=== PATIENT | female | born 2000 | race Caucasian/White ===

== ENCOUNTER 2018-06-30 12:12 | Emergency (ER) | payer BC ==
[2018-06-30 12:54] VITALS: BP 110/63
--- NOTE | 2018-06-30 13:29 | UC ---
Throat Pain/Nasal Andre HPI - HPI Summary HPI Summary: 18-year-old female presents with a ten-day history of sore throat. Initially associated with some mild nasal congestion and drainage however the symptoms have resolved. She states over about the past 4-5 days been noticing increased swelling of her lymph nodes and has developed some bilateral ear pain as well. Today she noted some left upper quadrant pain. Denies fever, chills, dysphagia , chest pain, shortness of breath, nausea or vomiting. Last menstrual period was 06/01/2018. She is sexually active however she states that she is on oral control and using condoms consistently. - History of Current Complaint Chief Complaint: UCRespiratory Stated Complaint: SORE THROAT Time Seen by Provider: 06/30/18 13:17 Hx Obtained From: Patient Hx Last Menstrual Period: 06/01/18 ?: No Onset/Duration: Gradual Onset, Lasting Days - 10 Severity: Mild Pain Intensity: 4 Cough: None Associated Signs & Symptoms: Positive: Nasal Discharge. Negative: Dysphagia, Hoarseness, Sinus Discomfort, Fever, Vomiting, Rash - Allergies/Home Medications Allergies/Adverse Reactions: Allergies Allergy/AdvReac Type Severity Reaction Status Date / Time cefprozil [From Cefzil] Allergy Hives Verified 06/30/18 12:55 Home Medications: Home Medications Otc 24 Hr Allergy Med 1 dose PO DAILY PRN 06/30/18 [History Confirmed 06/30/18] Saline Nasal Rinse 1 dose BOTH NARES BID PRN 06/30/18 [History Confirmed ] PMH/Surg Hx/FS Hx/Imm Hx Previously Healthy: Yes - denies significant past medical history - Surgical History Surgical History: None - Family History Known Family History: Positive: Cardiac Disease - father stroke at age 50, Hypertension - father - Social History Occupation: Student Lives: Dormitory/Roommates Alcohol Use: None Substance Use Type: None Smoking Status (MU): Never Smoked Tobacco - Immunization History Most Recent Influenza Vaccination: Not the 2016/2016 Season Review of Systems Constitutional: Negative Skin: Negative Eyes: Negative ENT: Sore Throat, Ear Ache, Nasal Discharge Respiratory: Negative Cardiovascular: Negative Gastrointestinal: Abdominal Pain Genitourinary: Negative Is Patient Immunocompromised?: No All Other Systems Reviewed And Are Negative: Yes Physical Exam Triage Information Reviewed: Yes Appearance: Well-Appearing, No Pain Distress, Well-Nourished Vital Signs: Initial Vital Signs Temp 98.5 F 06/30/18 12:43 Pulse 84 06/30/18 12:43 Resp 20 06/30/18 12:43 BP 110/63 06/30/18 12:43 Pulse Ox 99 06/30/18 12:43 Vital Signs Reviewed: Yes Eyes: Positive: Conjunctiva Clear. Negative: Discharge ENT: Positive: Pharyngeal erythema - Mild, TMs normal, Tonsillar swelling - 2+, Tonsillar exudate, Uvula midline. Negative: Nasal congestion, Nasal drainage, Trismus, Muffled voice, Hoarse voice, Sinus tenderness Neck: Positive: Supple, Enlarged Nodes @ - Anterior cervical with tenderness Respiratory: Positive: Lungs clear, Normal breath sounds, No respiratory distress Cardiovascular: Positive: RRR, No Murmur Abdomen Description: Positive: No Organomegaly, Soft, Other: - Mild left upper quadrant. Negative: Distended, Guarding Bowel Sounds: Positive: Present Neurological: Positive: Alert Skin Exam: Normal Diagnostics - Laboratory Diagnostic Studies Completed/Ordered: rapid strep positive Throat Pain/Nasal Course/Dx - Course Course Of Treatment: 18 year old female with 10 day history of sore throat. Exam revealed pharyngeal erythema with tonsillar swelling and exudate. Rapid strep positive. Will treat with 10 day course PenVK as well as symptomatic treatment. - Differential Dx/Diagnosis Differential Diagnosis/HQI/PQRI: Otitis Media, Pharyngitis, Tonsillitis, URI Provider Diagnoses: Strep pharyngitits Discharge - Sign-Out/Discharge Documenting (check all that apply): Patient Departure All imaging exams completed and their final reports reviewed: No Studies - Discharge Plan Condition: Stable Disposition: HOME Prescriptions: Penicillin VK 500 MG TAB(NF) [Penicillin VK 500 mg Tab] 500 mg PO BID #20 tab Patient Education Materials: Strep Throat (ED) Forms: *School Release Referrals: No Primary Care Phys,NOPCP [Primary Care Provider] - Additional Instructions: The rapid strep test in the clinic today was positive for strep throat. Start penicillin 1 tab twice a day for 10 days to treat your infection. Be aware that there is a small chance of cross reaction since you have an allergy to Cefzil. Stopped this medication immediately if you develop any rash and/or have any swelling of the lips, tongue, throat, or difficulty breathing and seek immediate medical attention. Drink plenty of fluids. He saltwater gargles several times throughout the day. Take acetaminophen (Tylenol) or ibuprofen (Advil, Motrin) according directions as needed for pain. You may also use Chloraseptic spray or Cepacol lozenges for some temporary pain relief. Follow-up here or with your primary care provider if no improvement in symptoms. - Billing Disposition and Condition Condition: STABLE Disposition: Home
== END 2018-06-30 14:07 | disposition home or self-care (01) ==
LOC: UCCORT 12:12
DX: J02.0 Streptococcal pharyngitis (principal)
CPT/HCPCS: 87651; 99212; G0463

== ENCOUNTER 2018-12-16 17:13 | Emergency (ER) | payer BC ==
[2018-12-16 17:42] VITALS: BP 124/73
--- NOTE | 2018-12-16 18:16 | UC ---
Throat Pain/Nasal Andre HPI - HPI Summary HPI Summary: 18-year-old female with cold symptoms over the past 2 days. - History of Current Complaint Chief Complaint: UCRespiratory Stated Complaint: SINUS,CONGESTION Time Seen by Provider: 12/16/18 17:38 Hx Obtained From: Patient Hx Last Menstrual Period: 12/06/18 ?: No Onset/Duration: Gradual Onset Severity: Mild Pain Intensity: 0 Cough: None Associated Signs & Symptoms: Positive: Negative - Epiglottits Risk Factors Epiglottis Risk Factors: Negative - Allergies/Home Medications Allergies/Adverse Reactions: Allergies Allergy/AdvReac Type Severity Reaction Status Date / Time cefprozil [From Cefzil] Allergy Hives Verified 12/16/18 17:33 day quil, nyquil AdvReac Pt states Uncoded 12/16/18 17:35 she feels "foggy" PMH/Surg Hx/FS Hx/Imm Hx Previously Healthy: Yes - Surgical History Surgical History: Yes Surgery Procedure, Year, and Place: wisdom teeth - Family History Known Family History: Positive: Cardiac Disease - father stroke at age 50, Hypertension - father - Social History Occupation: Student Lives: Dormitory/Roommates Alcohol Use: None Substance Use Type: None Smoking Status (MU): Never Smoked Tobacco - Immunization History Most Recent Influenza Vaccination: Not the 2015/2016 Season Review of Systems All Other Systems Reviewed And Are Negative: Yes Constitutional: Positive: Negative Skin: Positive: Negative Eyes: Positive: Negative ENT: Positive: Nasal Discharge, Sinus Congestion Respiratory: Positive: Negative Cardiovascular: Positive: Negative Gastrointestinal: Positive: Negative Genitourinary: Positive: Negative Motor: Positive: Negative Neurovascular: Positive: Negative Musculoskeletal: Positive: Negative Neurological: Positive: Negative Psychological: Positive: Negative Is Patient Immunocompromised?: No Physical Exam Triage Information Reviewed: Yes Appearance: Well-Appearing, No Pain Distress, Well-Nourished Vital Signs: Initial Vital Signs Temp 99.1 F 12/16/18 17:35 Pulse 87 12/16/18 17:35 Resp 20 12/16/18 17:35 BP 124/73 12/16/18 17:35 Pulse Ox 99 12/16/18 17:35 Vital Signs Reviewed: Yes Eye Exam: Normal ENT: Positive: Hearing grossly normal, Pharynx normal, Nasal congestion, Nasal drainage - Clear Nasal coryza, TMs normal, Sinus tenderness, Uvula midline. Negative: Tonsillar swelling, Tonsillar exudate, Trismus, Muffled voice, Hoarse voice Neck exam: Normal Respiratory Exam: Normal Cardiovascular Exam: Normal Abdominal Exam: Normal Bowel Sounds: Positive: Present Musculoskeletal Exam: Normal Neurological Exam: Normal Psychological Exam: Normal Skin Exam: Normal Throat Pain/Nasal Course/Dx - Course Course Of Treatment: Patient has been comfortable here. She is to use over-the- counter cold medicines as directed. - Differential Dx/Diagnosis Differential Diagnosis/HQI/PQRI: URI Provider Diagnosis: URI (upper respiratory infection) Discharge - Sign-Out/Discharge Documenting (check all that apply): Patient Departure All imaging exams completed and their final reports reviewed: No Studies - Discharge Plan Condition: Good Disposition: HOME Patient Education Materials: Upper Respiratory Infection (DC) Referrals: No Primary Care Phys,NOPCP [Primary Care Provider] - DARIAN LINDO [[email or web address], APPLICATION, OTHER] - Additional Instructions: Increase fluids, [id number] cold medicine directed. Follow up at the [facility] in 2 or 3 days if no improvement. - Billing Disposition and Condition Condition: GOOD Disposition: Home
== END 2018-12-16 18:18 | disposition home or self-care (01) ==
LOC: UCCORT 17:13
DX: J06.9 Acute upper respiratory infection, unspecified (principal); Z88.1 Allergy status to other antibiotic agents; Z88.8 Allergy status to other drugs, medicaments and biological substances
CPT/HCPCS: 99211; G0463

== ENCOUNTER 2019-01-02 15:00 | Emergency (ER) | payer BC ==
[2019-01-02 15:09] VITALS: BP 113/70
--- NOTE | 2019-01-02 15:57 | UC ---
Epistaxis Nasal HPI - HPI Summary HPI Summary: Pt presents with c/o frequent nose bleeds that have become more frequent over the last 3 days. - History of Current Complaint Chief Complaint: UCGeneralIllness Stated Complaint: NOSE BLEED/NAIR Hx Obtained From: Patient Hx Last Menstrual Period: 12/06/18 ?: No Onset/Duration: Sudden Onset, Lasting Days, Still Present Timing: Minutes Severity Initially: Moderate Severity Currently: None Pain Intensity: 4 Aggravating Factor(s): Other - sinusitis two weeks prior to onset of nosebleeds Alleviating Factor(s): Pressure Associated Signs And Symptoms: Positive: Negative - Allergies/Home Medications Allergies/Adverse Reactions: Allergies Allergy/AdvReac Type Severity Reaction Status Date / Time cefprozil [From Cefzil] Allergy Hives Verified 01/02/19 15:03 day quil, nyquil AdvReac Pt states Uncoded 01/02/19 15:03 she feels "foggy" Home Medications: Home Medications NK [No Home Medications Reported] 01/02/19 [History Confirmed 01/02/19] PMH/Surg Hx/FS Hx/Imm Hx Previously Healthy: Yes - Surgical History Surgical History: Yes Surgery Procedure, Year, and Place: wisdom teeth - Family History Known Family History: Positive: Cardiac Disease - father stroke at age 50, Hypertension - father - Social History Occupation: Student Lives: Dormitory/Roommates Alcohol Use: Occasionally Substance Use Type: None Smoking Status (MU): Never Smoked Tobacco Have You Smoked in the Last Year: No - Immunization History Most Recent Influenza Vaccination: Not the 2015/2016 Season Vaccination Up to Date: Yes Review of Systems All Other Systems Reviewed And Are Negative: Yes Constitutional: Positive: Negative Skin: Positive: Negative Eyes: Positive: Negative ENT: Positive: Other - nosebleeds Respiratory: Positive: Negative Cardiovascular: Positive: Negative Gastrointestinal: Positive: Negative Genitourinary: Positive: Negative Motor: Positive: Negative Neurovascular: Positive: Negative Musculoskeletal: Positive: Negative Neurological: Positive: Negative Psychological: Positive: Negative Is Patient Immunocompromised?: No Physical Exam Triage Information Reviewed: Yes Appearance: Well-Appearing Vital Signs: Initial Vital Signs Temp 98.2 F 01/02/19 15:03 Pulse 85 01/02/19 15:03 Resp 16 01/02/19 15:03 BP 113/70 01/02/19 15:03 Pulse Ox 98 01/02/19 15:03 Vital Signs Reviewed: Yes Eye Exam: Normal ENT: Positive: Other - no hematoma appreciated in either nostril, nasal passages patent, Dental Exam: Normal Neck exam: Normal Respiratory Exam: Normal Respiratory: Positive: No respiratory distress Musculoskeletal Exam: Normal Neurological Exam: Normal Psychological Exam: Normal Skin Exam: Normal Epistaxis Nasal Course/Dx - Differential Dx/Diagnosis Differential Diagnosis/HQI/PQRI: Epistaxis Provider Diagnosis: Epistaxis not due to trauma Discharge - Sign-Out/Discharge Documenting (check all that apply): Patient Departure All imaging exams completed and their final reports reviewed: No Studies - Discharge Plan Condition: Stable Disposition: HOME Patient Education Materials: Nosebleed (ED) Referrals: Ameya Davis MD [Medical Doctor] - As Soon As Possible No Primary Care Phys,NOPCP [Primary Care Provider] - Additional Instructions: Please use an antibiotic ointment inside your nostrils nightly with a clean Qtip. - Billing Disposition and Condition Condition: STABLE Disposition: Home - Attestation Statements Provider Attestation: I was available for consult. This patient was seen by the [facility]. The patient was not presented to, seen by, or examined by me. -Jeanna
== END 2019-01-02 16:10 | disposition home or self-care (01) ==
LOC: UCCORT 15:00
DX: R04.0 Epistaxis (principal); Z88.1 Allergy status to other antibiotic agents
CPT/HCPCS: 99211; G0463

== ENCOUNTER 2019-08-09 13:26 | Emergency (ER) | payer BC ==
[2019-08-09 13:49] VITALS: BP 113/68
[2019-08-09] MEDS ORDERED: Ibuprofen TAB* 200 MG PO ONE (14:09)
--- NOTE | 2019-08-09 14:13 | UC ---
Upper Extremity HPI - HPI Summary HPI Summary: 19 year old female, no prior injuries, no PMH, present with right hand pain, wrist pain. Patient fell on friday after tripping, landed on hand, immediate pain, swelling, some bruising. pain continues, difficulty moving fingers/ wrist due to pain. - History of Current Complaint Chief Complaint: UCUpperExtremity Stated Complaint: RIGHT HAND COMPLAINT Time Seen by Provider: 08/09/19 13:49 Hx Obtained From: Patient Hx Last Menstrual Period: 07/12/19 ?: No Onset/Duration: Sudden Onset, Lasting Days Severity Initially: Moderate Severity Currently: Moderate Pain Intensity: 8 Pain Scale Used: 0-10 Numeric Location Of Pain: Is Discrete @ - right wrist, hand Aggravating Factor(s): Movement Alleviating Factor(s): Rest Associated Signs And Symptoms: Positive: Swelling, Bruising Related History: Dominant Hand Left - Allergies/Home Medications Allergies/Adverse Reactions: Allergies Allergy/AdvReac Type Severity Reaction Status Date / Time cefprozil [From Cefzil] Allergy Hives Verified 08/09/19 13:46 day quil, nyquil AdvReac Pt states Uncoded 08/09/19 13:46 she feels "foggy" Home Medications: Home Medications Ibuprofen TAB* [Motrin TAB* 600 MG] 600 mg PO Q6H PRN 08/09/19 [History Confirmed 08/09/19] PMH/Surg Hx/FS Hx/Imm Hx Previously Healthy: Yes - Surgical History Surgical History: Yes Surgery Procedure, Year, and Place: wisdom teeth - Family History Known Family History: Positive: Cardiac Disease - father stroke at age 50, Hypertension - father, Non-Contributory - Social History Alcohol Use: Occasionally Substance Use Type: None Smoking Status (MU): Never Smoked Tobacco Have You Smoked in the Last Year: No - Immunization History Most Recent Influenza Vaccination: Not the 2016/2016 Season Vaccination Up to Date: Yes Review of Systems All Other Systems Reviewed And Are Negative: Yes Constitutional: Positive: Negative Motor: Positive: Decreased ROM Musculoskeletal: Positive: Arthralgia, Decreased ROM, Edema, Myalgia Is Patient Immunocompromised?: No Physical Exam Triage Information Reviewed: Yes Appearance: Well-Appearing, No Pain Distress, Well-Nourished Vital Signs: Initial Vital Signs Temp 98.9 F 08/09/19 13:44 Pulse 72 08/09/19 13:44 Resp 14 08/09/19 13:44 BP 113/68 08/09/19 13:44 Pulse Ox 99 08/09/19 13:44 Vital Signs Reviewed: Yes Eyes: Positive: Conjunctiva Clear ENT: Positive: Hearing grossly normal Skin: Positive: Other - mild ecchymosis noted at MCP 4th, 5th right hand, PIP 5th, 4th, IP 1st. decreased ROM at Upper Extremity Course/Dx - Course Course Of Treatment: Hotel Room Attendant: Lloyd Spangler Daniel, ([id number]) Laborer Sawmill: KERON ( NUANCE) Report Date: 08/09/2019 13:53:00 Report Status: Final ====== Start of Report Content Patient Name: CYNDI COLE Medical Record#: [id number] Ordering Physician: Caren GARCIA Acct.#: [id number] : Age: 19 Sex: F Location: [facility] Exam Date: 08/09/19 1353 ADM Status: REG ER Order Information: HAND - RIGHT MINIMUM 3 VIEWS Accession Number: [id number] CPT: 98985 HISTORY: fall, TTP/ decreased ROM 5, 4th PIP, metacarp . COMPARISONS: None relevant available at the time of dictation. VIEWS: 7, Frontal, lateral, and oblique views of the right hand and wrist FINDINGS: BONE DENSITY: Normal. BONES: There is no displaced fracture. JOINTS: There is no arthropathy. ALIGNMENT: There is no dislocation. SOFT TISSUES: Unremarkable. OTHER FINDINGS: None. IMPRESSION: NO ACUTE OSSEOUS INJURY. IF SYMPTOMS PERSIST, RECOMMEND REPEAT IMAGING. <Electronically signed by Lloyd Spangler MD in OV> 08/09/191426 Dictated By: Lloyd Spangler MD Dictated Date /Time: 08/09/191426 Transcribed Date/Time: 08/09/191426 Copy to: CC:Penelope Fabian MD; Caren GARCIA; No Primary Care Phys,NOPCP Imaging - [facility] - [facility] - [facility] [id number] [place], [place] [id number] [place] [id number] ph ([phone]) ph ([phone]) ph ([phone]) End of Report Content Wrist contusion, Sprain- - Wrist splint to be use at all time next 2-3 days, may wean out afterwards, continue to use to activities, but may remove for sedentary activities. - If no improvement within 3-5 days, call orthopedics for appointment. - Ice, elevate as much as possible over next 2-3 day - Motrin 600-800mg every 6 hours as needed for pain - Differential Dx/Diagnosis Differential Diagnosis/HQI/PQRI: Strain, Sprain Provider Diagnosis: Wrist contusion Discharge ED - Sign-Out/Discharge Documenting (check all that apply): Patient Departure All imaging exams completed and their final reports reviewed: Yes - Discharge Plan Condition: Good Disposition: HOME Patient Education Materials: Contusion in Adults (ED), Wrist Sprain (ED) Referrals: Liang Padron MD [Medical Doctor] - (call for appointment if no improvement within 3-5 days ) Additional Instructions: Wrist contusion, Sprain- - Wrist splint to be use at all time next 2-3 days, may wean out afterwards, continue to use to activities, but may remove for sedentary activities. - If no improvement within 3-5 days, call orthopedics for appointment. - Ice, elevate as much as possible over next 2-3 day - Motrin 600-800mg every 6 hours as needed for pain - Billing Disposition and Condition Condition: GOOD Disposition: Home
== END 2019-08-09 14:53 | disposition home or self-care (01) ==
LOC: UCCORT 13:26
DX: S60.211A Contusion of right wrist, initial encounter (principal); W01.0XXA Fall on same level from slipping, tripping and stumbling without subsequent striking against object, initial encounter; Y92.9 Unspecified place or not applicable; Z88.1 Allergy status to other antibiotic agents; Z88.8 Allergy status to other drugs, medicaments and biological substances
CPT/HCPCS: 99211; A9270-GY; G0463